=== PATIENT | male | born 1960 | race Asian ===

== ENCOUNTER 2022-05-15 19:55 | Emergency (ER) | payer OTHER ==
[~2022-05-15] VITALS: Ht 165.1 cm; Wt 74.8 kg
[2022-05-15 19:55] VITALS: BP 98/59; TEMP 97
[2022-05-15 20:25] LABS: PLATELET COUNT 138 K/uL (142-355)
[2022-05-15 20:30] LABS: POTASSIUM 3.6 mmol/L (3.6-5.2)
[2022-05-16] MEDS ORDERED: ANORO ELLIPTA 61 AER INH (12:54)
[2022-05-16] MEDS ORDERED: ASPIRIN81 M1 PO (12:56)
[2022-05-16] MEDS ORDERED: BENZ1TAB43 PO (12:57)
[2022-05-16] MEDS ORDERED: LORA10TA3 PO (12:58)
[2022-05-16] MEDS ORDERED: DICYCLOMINE HYD20 MG PO (12:59)
[2022-05-16] MEDS ORDERED: CVS STOOL SOFT100 MG PO (12:59)
[2022-05-16] MEDS ORDERED: LACTULOSE10 GM/15 M PO (13:02)
[2022-05-16] MEDS ORDERED: ACID CONTROL20 MG PO (13:03)
[2022-05-16] MEDS ORDERED: IRON325 MG PO (13:09)
[2022-05-16] MEDS ORDERED: HALOPERIDOL2 MG PO (13:13)
[2022-05-16] MEDS ORDERED: LORA1TAB17 PO (13:14)
[2022-05-16] MEDS ORDERED: KEPPRA1000 MG PO (13:14)
[2022-05-16] MEDS ORDERED: ALUMSUS6 PO (13:23)
[2022-05-16] MEDS ORDERED: OMEPRAZOLE DR40 MG PO (13:25)
[2022-05-16] MEDS ORDERED: POLYETHYLE17 GM/SCO1 PO (13:31)
[2022-05-16] MEDS ORDERED: RISPERDAL4 MG PO (13:32)
[2022-05-16] MEDS ORDERED: ROSU10TA PO (13:33)
[2022-05-16] MEDS ORDERED: CARAFATE1 GM/10 ML PO (13:34)
[2022-05-16] MEDS ORDERED: VITAMIN C500 M7 PO (13:35)
[2022-05-16] MEDS ORDERED: VITAMIN D31000 UNI4 PO (13:36)
[2022-05-16] MEDS ORDERED: [UNRECOGNIZED DRUG - CODE] PO ×2 (13:39→13:40)
== END 2022-05-15 22:05 | disposition still patient (30) ==
LOC: ED 19:55
PROVIDERS: Emergency Medicine
DX: F03.911 Unspecified dementia, unspecified severity, with agitation (principal); E86.0 Dehydration; Z11.52 Encounter for screening for COVID-19; Z04.6 Encounter for general psychiatric examination, requested by authority
CPT/HCPCS: 36415; 80053; 85027; 87635; 93005; 99283; U0003